=== PATIENT | female | born 1985 | race Caucasian/White ===

== ENCOUNTER 2017-01-08 02:45 | Emergency (ER) | payer MEDICAID ==
[2017-01-08] MEDS ORDERED: VITAMIN K IV ONE ×4 (03:06)
[2017-01-08] MEDS ORDERED: FOLIC ACID IV ONE ×4 (03:06)
[2017-01-08] MEDS ORDERED: [UNRECOGNIZED DRUG - OTHER] IV ONE ×4 (03:06)
[2017-01-08] MEDS ORDERED: MVI IV ONE ×4 (03:06)
[2017-01-08] MEDS ORDERED: THIAMINE IV ONE ×4 (03:06)
[2017-01-08 03:24] LABS: CHLORIDE,CL 109 mmol/L (101-111); SODIUM,NA 144 mmol/L (135-145)
[2017-01-08] MEDS ORDERED: Sodium Chloride 0.9% 1,000 ML IV SCH (04:00)
[2017-01-08] MEDS ORDERED: Naloxone 2 MG/2 ML Syringe ONE (04:10)
[2017-01-08] MEDS ORDERED: Sodium Chloride 0.9% 1,000 ML IV ONE (05:31)
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
[2017-01-08 05:53] VITALS: BP 98/56
== END 2017-01-08 06:02 | disposition home or self-care (01) ==
LOC: DL.ED 02:45
DX: F10.920 Alcohol use, unspecified with intoxication, uncomplicated (principal); Z88.5 Allergy status to narcotic agent; Z88.6 Allergy status to analgesic agent; Z90.49 Acquired absence of other specified parts of digestive tract
CPT/HCPCS: 36415; 80053; 80305; 81001; 82150; 84703; 85025; 96365; 96366; 96367; 96375; 99285; G0480; J2310; J3411; J7030; J7120; J3490